=== PATIENT | male | born 1965 | race Caucasian/White ===

== ENCOUNTER → 2024-04-11 07:40 | Outpatient (REF) | payer OTHER, SELFPAY | LOC: MRI 07:40 | PROVIDERS: ATTENDING PHYSICIAN Nurse Practitioner Adult Health; FAMILY PHYSICIAN Family Medicine | DX: D49.2 Neoplasm of unspecified behavior of bone, soft tissue, and skin (principal); M89.9 Disorder of bone, unspecified | CPT/HCPCS: 72198; A9585 ==

== ENCOUNTER → 2024-11-26 11:50 | Outpatient (REF) | payer OTHER, SELFPAY | LOC: DHSLP 11:50 | PROVIDERS: ATTENDING PHYSICIAN Family Medicine | DX: G47.33 Obstructive sleep apnea (adult) (pediatric) (principal) | CPT/HCPCS: 95800 ==